=== PATIENT | male | born 1985 | race African-American/Black ===

== ENCOUNTER 2025-04-29 15:24 | Inpatient (IN) | payer MEDICAID ==
[~2025-04-29] VITALS: Ht 185.4 cm; Wt 88.1 kg
[~2025-04-29 15:24] MED LIST: BUPR-49 PO; MELA5TAB40 PO; MIRT-89 PO; NALT50TA33 PO; OLAN10TA26 PO; PRAZ1 PO
[2025-04-29] MEDS ORDERED: ZOLPIDEM TARTRATE 10 MG TABLET PO PRN (16:15)
[2025-04-29] MEDS ORDERED: LORazepam 2 MG/ML VIAL ONE (17:51)
[2025-04-29 18:16] VITALS: RESP 18
[2025-04-29] MEDS: LORazepam 2 MG/ML VIAL IM ONE (18:24)
[2025-04-29] MEDS: INFLUENZA VIRUS VACCINE TVS (6MO+) 2025-26/PF 45 MCG/0.5 ML SYRINGE IM. ONE (19:00)
[2025-04-29] MEDS ORDERED: GuaiFENesin/D-METHORPHAN [SUGAR-FREE] 200-20MG/10 ML SYRUP UDCUP PO PRN (19:30)
[2025-04-29] MEDS ORDERED: ALBUTEROL SULFATE HFA 90 MCG/PUFF 8 GM INHALER IH PRN (19:30)
[2025-04-29] MEDS ORDERED: DOCUSATE SODIUM 100 MG CAPSULE PO PRN (19:30)
[2025-04-29] MEDS ORDERED: MAG HYDROX/ALUMINUM HYD/SIMETH ES 30 ML SUSPENSION UDCUP PO PRN (19:30)
[2025-04-29] MEDS ORDERED: PETROLATUM,WHITE 28 GM JELLY TP PRN (19:30)
[2025-04-29] MEDS ORDERED: MAGNESIUM HYDROXIDE SUSPENSION 30 ML UDCUP PO PRN (19:30)
[2025-04-29] MEDS ORDERED: LOPERAMIDE HCL 2 MG CAPSULE PO PRN (19:30)
[2025-04-29] MEDS ORDERED: NICOTINE 14 MG/24 HOUR PATCH TD PRN (19:30)
[2025-04-29] MEDS ORDERED: ONDANSETRON 4 MG TABLET PO PRN (19:30)
[2025-04-29 20:46] LABS: GLUCOMETER DEV NAME(LOC) POC.BV; POC SARS-COV2 AG, FIA NEGATIVE (NEGATIVE)
[2025-04-29 22:25] VITALS: RESP 16
[2025-04-30 10:04] VITALS: RESP 17
[2025-04-30] MEDS: BuPROPion HCL XL 150 MG ER TABLET PO SCH (11:15)
[2025-04-30] MEDS: IBUPROFEN 400 MG TABLET PO PRN (15:09)
[2025-04-30] MEDS: ACETAMINOPHEN 325 MG TABLET PO PRN (17:27)
[2025-04-30] MEDS: PRAZOSIN HCL 1 MG CAPSULE PO SCH (20:59)
[2025-04-30] MEDS: OLANZapine 10 MG RAPDIS TABLET PO SCH (20:59)
[2025-04-30] MEDS: MIRTAZAPINE 15 MG TABLET PO SCH (20:59)
[2025-04-30 21:42] VITALS: RESP 17
[2025-04-30 21:43] VITALS: RESP 17
[2025-05-01 08:46] VITALS: RESP 18
[2025-05-01 09:46] VITALS: RESP 17
[2025-05-01] MEDS: DENTURE ADHESIVE 68 GM CREAM DT PRN (17:20)
[2025-05-01 20:23] VITALS: RESP 17
[2025-05-02 08:31] VITALS: RESP 16
[2025-05-02 20:22] VITALS: RESP 16
[2025-05-03 08:11] VITALS: RESP 16
[2025-05-03 20:06] VITALS: RESP 18
[2025-05-04 08:02] VITALS: RESP 17
[2025-05-04 20:21] VITALS: RESP 18
[2025-05-05 08:04] VITALS: RESP 18
[2025-05-05 20:11] VITALS: RESP 18
[2025-05-06 08:20] VITALS: RESP 18
[2025-05-07 08:18] VITALS: RESP 18
[2025-05-08 08:08] VITALS: RESP 18
[2025-05-08] MEDS ORDERED: OLAN10TA26 PO (16:01)
[2025-05-08] MEDS ORDERED: BUPR-49 PO (16:01)
[2025-05-08] MEDS ORDERED: MIRT-89 PO (16:01)
[2025-05-08] MEDS ORDERED: PRAZ1 PO (16:01)
== END 2025-05-08 13:06 | disposition home or self-care (01) | DRG 761 ==
LOC: B3A 16:11
PROVIDERS: ADMIT Psychiatry & Neurology Psychiatry; ATTEND Psychiatry & Neurology Psychiatry
PROC: GZHZZZZ Group Psychotherapy (ICD-10-PCS; principal; 2025-04-30)
DX: F25.0 Schizoaffective disorder, bipolar type (principal); R45.851 Suicidal ideations; F12.90 Cannabis use, unspecified, uncomplicated; G47.00 Insomnia, unspecified; J45.909 Unspecified asthma, uncomplicated; Z20.822 Contact with and (suspected) exposure to COVID-19; Z79.899 Other long term (current) drug therapy; Z91.148 Patient's other noncompliance with medication regimen for other reason; Z91.51 Personal history of suicidal behavior; Z91.52 Personal history of nonsuicidal self-harm
CPT/HCPCS: 90686; J1200; J2060; J3230